=== PATIENT | male | born 1940 | race Caucasian/White ===

== ENCOUNTER 2019-01-31 07:50 | Observation (INO) ==
--- NOTE | 2019-01-31 07:45 | Anesthesia Evaluation PreOp ---
Date of Encounter: 01/31/19 Time of Encounter: 07:43 - Past History Planned Operation: RIGHT TKA Cardiac History: HTN, Hyperlipidemia Pulmonary History: COPD Other Medical History: Diabetes Type II, Other (OBESITY) Anesthesia History: No Prior Anesthetic Complications, Past Anesthesia Alcohol Use: none Drug use: none Medications and Allergies HYDROcodone/Acet 5/325 mg [[place] 5-325 mg] 1 tab PO Q6H PRN #15 tab 12/22/16 [Rx] cephALEXin [Keflex] 500 mg PO QID #28 capsule 12/22/16 [Rx] Docusate Sodium [Colace] 100 mg PO BID 5 Days #10 capsule 01/31/19 [Rx] OxyCODONE Immed Rel [Roxicodone 5 MG] 5 mg PO Q6HR PRN 5 Days #20 tablet 01/31/19 [Rx] Allergy/AdvReac Type Severity Reaction Status Date / Time No Known Allergies Allergy Verified 12/22/16 19:56 - Meds/Allergy Pre-op Review Medications Reviewed: Yes Allergies Reviewed: Yes Beta Blockers on Current Med List: No Anesthesia Results - Labs REVIEWED, WNL Anesthesia Exam REVIEWED Weight: 98 KG, BMI 32 NPO (# of Hours): 8 - HEENT Mallampati: IV Teeth: Missing - Cardiac Rhythm: Regular - Pulmonary Breath Sounds: bilateral Clear Anesthesia Assess/Plan ASA Score: 3 Anesthetic Plan: Regional Nerve Block, Spinal Monitoring Plan: Standard Monitors Recovery Plan: PACU
[~2019-01-31 07:50] MED LIST: *HR* HYDROmorphone (PF) 1 MG/ML SYRINGE IVP PRN; *HR* Labetalol 20 MG/4 ML SYRINGE IVP PRN; *HR* OxyCODONE Immed Rel 5 MG TABLET PO PRN; *HR* Promethazine 25 MG/ML VIAL IVP PRN; Acetaminophen IV 1,000 MG/100 ML INFUS..BTL IVPB ONE; Gabapentin 300 MG CAPSULE PO ONE; Ipratropium/Albuterol Neb 3 ML IH PRN; Ondansetron 4 MG/2 ML VIAL IVP ONE
[2019-01-31] MEDS ORDERED: traMADol 50 MG TABLET PO ONE (08:02)
--- NOTE | 2019-01-31 08:04 | Discharge Summary ---
<Tory Moore E - Last Filed: 01/31/19 08:22> Date of Encounter: 01/31/19 - Hospital Course Hospital course: Mr. Chan is a 78 year old male - Time Spent with Patient Total time spent providing and/or coordinating discharge services: - Discharge Medications Prescriptions: New Docusate Sodium [Colace] 100 mg PO BID 5 Days #10 capsule OxyCODONE Immed Rel [Roxicodone 5 MG] 5 mg PO Q6HR PRN 5 Days #20 tablet PRN Reason: Severe Pain Aspirin Enteric Coated [Aspirin EC] 325 mg PO BID 10 Days #20 tablet.dr Continued Aspirin 325 mg PO HS Simvastatin [Zocor] 20 mg PO HS Omeprazole [PriLOSEC] 20 mg PO MOWEFR Metformin HCl 1,000 mg PO BID Lisinopril [Zestril] 5 mg PO DAILY Citalopram Hydrobromide [Citalopram HBr] 40 mg PO DAILY Home Medications: Aspirin 325 mg PO HS 01/31/19 [History] Aspirin Enteric Coated [Aspirin EC] 325 mg PO BID 10 Days #20 tablet. 01/31/19 [Rx] Citalopram Hydrobromide [Citalopram HBr] 40 mg PO DAILY 01/31/19 [History] Docusate Sodium [Colace] 100 mg PO BID 5 Days #10 capsule 01/31/19 [Rx] Lisinopril [Zestril] 5 mg PO DAILY 01/31/19 [History] Metformin HCl 1,000 mg PO BID 01/31/19 [History] Omeprazole [PriLOSEC] 20 mg PO MOWEFR 01/31/19 [History] OxyCODONE Immed Rel [Roxicodone 5 MG] 5 mg PO Q6HR PRN 5 Days #20 tablet 01/31/19 [Rx] Simvastatin [Zocor] 20 mg PO HS 01/31/19 [History] Allergies/Adverse Reactions: Allergy/AdvReac Type Severity Reaction Status Date / Time No Known Allergies Allergy Verified 01/31/19 08:44 Primary care physician: Scott Saenz DO - Patient Status Disposition: Transfer Inpatient Rehab Fac Condition: Good - Discharge Instructions Follow Up With: Scott Saenz DO [Primary Care Provider] - <Tory Garcia - Last Filed: 02/03/19 15:08> Orders not resulted at time of discharge: Pending orders 01/31/19 11:19 Surgical Pathology [PTH] Routine Date of Encounter: 02/03/19 Time of Encounter: 15:04 - Discharge Diagnosis (1) Status post total right knee replacement Priority: Primary Status: Acute (2) Osteoarthritis of right knee Priority: Primary Status: Chronic Qualifiers: Osteoarthritis type: unspecified Qualified Code(s): M17.11 - Unilateral primary osteoarthritis, right knee (3) Diabetes mellitus Priority: Secondary Status: Chronic Qualifiers: Diabetes mellitus type: type 2 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 Chan is a 78 year old male status post right TKR 01/31/19 with medical history of DM, HTN, obesity. He participated in therapy and recommended for placement to rehab facility. He did have postoperative bleeding from the incision which resolved after addition of skin alexis. He otherwise had an uneventful hospital course. He is stable for discharge to [facility] and will follow up in [facility] office next week. - Time Spent with Patient Total time spent providing and/or coordinating discharge services: Date of admission: 01/31/19 Primary care physician: Scott Saenz DO Consults: 01/31/19 13:11 Consult to Nutrition [CONS] Routine Comment: Consulting Provider: NUTRITION Reason for Dietary Consult: Other Other:: Proper nutrition to facilitate wound healing Consult to Orthopedic Navigator [CONS] [CONS] Routine Consult to Physical Therapy [CONS] Routine Comment: Evaluate, develop and impliment POC Reason for Consult: post knee surgery Does patient have active BEDREST order?: No Is patient medically & hemodynamically stable?: Yes Consult to Taco Maker [CONS] Routine Reason for SW Consult: post op joint replacement RT Post Op Consult [CONS] Routine 01/31/19 13:23 Consult to Pastoral Services [CONS] Routine Comment: Discharging clinician: Kam Varner Anticipated date of discharge: 02/03/19 Labs on day of discharge: Short CBC 02/03/19 Range/Units 04:21 WBC 8.9 (4.3-11.1) K/mcL Hgb 11.3 L (12.9-16.9) g/dL Hct 34.7 L (37.5-50.1) % Plt Count 157 (140-400) K/mcL Neutrophils # 6.2 (1.6-8.9) K/mcL BMP 02/03/19 Range/Units 04:21 Sodium 138 (136-145) mEq/L Potassium 4.0 (3.5-5.1) mEq/L Chloride 100 (98-107) mEq/L Carbon Dioxide 29 (23-29) mEq/L BUN 12 (8-23) mg/dL Creatinine 0.68 L (0.70-1.30) mg/dL Glucose 150 H (70-105) mg/dL Calcium 8.6 (8.6-10.3) mg/dL - Impressions Knee X-Ray 01/31/19 01:00 IMPRESSION: Status post right knee arthroplasty. No acute postoperative complication. D/ / 01/31/2019 12:35:01 Raymond Brewer MD / [email or web address] Interpreting Provider: Raymond Brewer MD - Patient Status Functional capacity at discharge: uses cane/walker Overall status at discharge: patient is back to baseline - Diet and Activity Activity: ambulate only with your walker, as per physical therapy Diet: advance to your usual diet
[2019-01-31] MEDS ORDERED: *HR* FentaNYL (PF) 100 MCG/2 ML VIAL ONE (08:38)
[2019-01-31] MEDS ORDERED: *HR* Propofol 200 MG/20 ML VIAL IVP ONE ×2 (08:38→11:36)
[2019-01-31] MEDS ORDERED: *HR* Midazolam HCl 2 MG/2 ML VIAL ONE (08:38)
[2019-01-31] MEDS ORDERED: Ondansetron 4 MG/2 ML VIAL ONE (08:41)
[2019-01-31] MEDS ORDERED: Lidocaine -MPF 2% 2 ML VIAL ONE (08:41)
[2019-01-31] MEDS ORDERED: Tranexamic Acid 1,000 MG/10 ML VIAL ONE (08:41)
--- NOTE | 2019-01-31 09:02 | History & Physical Report ---
Date of Encounter: 01/31/19 Time of Encounter: 09:02 24 Hour HP Update - Instructions Instructions: If the History and Physical is less than 30 days old and was completed prior to A.M. admission and or procedure and has NOT been updated on calendar day of procedure please complete this update prior to performing procedure. - Update Patient reports changes in Medical Condition: No Changes in examination, assessment, or condition: No Changes in Medication: No Preop tests/diagnostics Reviewed: Yes Surgery Remains Indicated: Yes Consent for Planned Operative Procedure(s) Verified: Yes - Pre-Operative Checklist Preoperative Checklist Indicated: No Prophylactic Antibiotic Ordered: Yes Is VTE Prophylaxis Indicated?: Yes
[2019-01-31] MEDS ORDERED: Ethanol\\Acetic Acid\\Na Ace\\Ben 1,000 ML IRRIG.SOLN IR ONE (09:05)
[2019-01-31] MEDS ORDERED: Albuterol 2.5 MG/3 ML NEBULIZER IH ONE (09:10)
[2019-01-31] MEDS ORDERED: CeFAZolin Syr 2,000MG/20 ML 2,000 MG/20 ML SYRINGE IVPB ONE (09:10)
[2019-01-31] MEDS ORDERED: Ropivacaine/PF 0.5% 30 ML VIAL ONE (09:11)
[2019-01-31] MEDS ORDERED: Albuterol 2.5 MG/3 ML NEBULIZER ONE (09:24)
[2019-01-31] MEDS: Ringers Solution, Lactated 1,000 ML IVC SCH ×2 (09:28→11:00)
[2019-01-31] MEDS ORDERED: *HR* PHENYLEPHRINE 1,000 MCG/10 ML SYRINGE IVP ONE ×2 (10:34→11:29)
--- NOTE | 2019-01-31 10:41 | Anesthesia Procedures ---
Date of Encounter: 01/31/19 Time of Encounter: 09:55 Procedures: Anesthesia - Epidural/Spinal Patient ID/Chart reviewed: Yes Patient examined: Yes Supplemental Oxygen Rate (L/min): 2 Sedation: Versed (mg): 1 Sedation: Fentanyl (mcg): 50 Site Prep: Aseptic Technique, Povidone-Iodine 1% Patient position: upright Local Anesthetic: Lidocaine 1% (3ml skin local) Interspace Used: L4-L5 Loss of Resistance (MICHAELA): Yes Blood: No CSF: Yes Paresthesia: No Spinal Needle Gauge: 25 Spinal Dose: 2.8ml of 0.5% Bupivacaine Procedure: SAB performed with patient in sitting position after sterile aseptic betadine prep. LIdocaine 1% skin local(3ml), 25 guage Sprotte needle inserted first attempt via L4-L5 interspace with no blood or parasthesia encounted. Clear CSF X4 quads Given 2.8ml of 0.5% Bupivacaine and assisted supine Tolerated Block well without difficulty. Vitals + FHT's: Vital Signs/O2 Sat/Glucose, Most Recent Temp Pulse Resp BP Pulse Ox 98.4 F 62 18 126/73 97 01/31/19 08:52 01/31/19 10:11 01/31/19 08:52 01/31/19 10:11 01/31/19 10:11 Blood Glucose* 127 - Nerve Block Procedure Date: 01/31/19 Time: 10:07 Allergies/Adv Reactions: Allergies Allergy/AdvReac Type Severity Reaction Status Date / Time No Known Allergies Allergy Verified 01/31/19 08:44 Pre-op Diagnosis: Right Knee Arthritis Surgical Procedure: Robotic Right TKA Checklist: Correct Patient Identifier, Correct procedure, History checked Correct side: Right Blood Thinner: No Monitor Applied: EKG, BP, Pulse Oximetry Supplemental Oxygen via Nasal Cannula (L/min): 2 Sedation: Versed (mg): 1 (Given before SAB) Sedation: Fentanyl (mcg): 50 (Given before SAB) Indication: Post Op Analgesia Pre-op Neuro Deficits: No Block Type: Other (Adductor Canal Block) Sterile Technique: Yes Ultrasound used: Yes Anatomy identified: Yes Visual spread of Local: Yes Neuro Stimulation: No Blood on Needle Aspiration: No Smooth Injection of Local: Yes Pain with Injection of Local: No Prep: Chlorhexadine Needle: 21 x 100 mm Stimuplex Local: Ropivacaine (0.5% Ropivacaine with 8mg Decadron (20ml)) Volume (cc): 20ml Number of Attempts: 1 Complications: None/effective block Vitals: Vital Signs/O2 Sat/Glucose, Most Recent Temp Pulse Resp BP Pulse Ox 98.4 F 62 18 126/73 97 01/31/19 08:52 01/31/19 10:11 01/31/19 08:52 01/31/19 10:11 01/31/19 10:11 Blood Glucose* 127
[2019-01-31] MEDS ORDERED: Propofol 500 MG/50 ML INFUS..BTL ONE (10:56)
--- NOTE | 2019-01-31 11:17 | Orthopedic Operative Note ---
Date of procedure: 01/31/19 Pre-op diagnosis: Right knee arthritis Post-op diagnosis: same Procedure: Procedure: Right robotic-assisted Total knee replacement Estimated blood loss: 200 cc Hardware: Metal and polyethylene replacement. [place] Femur: 5 Tibia:5 TS insert: 9 Patella: 39 Exam Under anesthesia: 18 degree flexion contracture 11 degree varus as calculated by the robot full flexion and no instability Procedural Notes: Grade 4 arthritic changes patellofemoral joint medial compartment Operative procedure: The patient was brought to the operating room and placed on the operating room table. After general anesthesia was administered the operative knee was examined. Findings were noted in the exam under anesthesia. The operative extremity was prepped and draped in sterile surgical fashion. The patient received IV antibiotics prior to skin incision. A standard midline incision was made centered over the patella. The incision was made through the skin and subcutaneous tissue. A medial parapatellar tendon approach was performed. Care was taken to preserve tissue along the medial aspect of the patella. And to protect the patella tendon. The deep MCL was released off the medial tibia. The infra patella fat pad was excised. The patella was everted and cut was made at the level of the insertion of the quadriceps and patella tendon. The patella was sized the guide was seated and the lug holes are drilled. Knee was brought into flexion. Patient noted to have grade 4 arthritic changes patellofemoral joint medial compartment. Steinmann pins were placed in the tibia and the femur for the tibial and femoral arrays respectively. Checkpoints were also placed in the tibia and the femur for calculation purposes. The knee including the femur and the tibial registered. Osteophytes, ACL and PCL were excised at this point. Extension and flexion were assessed with a valgus stress components were adjusted on the computer to balance the knee. Femoral cuts were made first with robotic assistance, these included the anterior cut posterior cuts chamfer cuts. Tibial cut was then performed with robotic assistance as well. Bone fragments were removed, as well as the medial and lateral meniscus. The size 5 femoral guide was seated box cut was made lug holes are drilled. The size 5 tibial tray was seated and prepared with the fin cutter. Trial reduction with the 9 TS Nayely revealed extension of 0 degree and 7 degree varus full flexion. No varus valgus instability. Trial reduction revealed excellent patella tracking. All trial components were removed all bony surfaces were irrigated. The Tibia was seated followed by the femur, The selected Nayely size was seated and secured patella. Patient had similar findings for motion and stability. The knee was closed by the PA. The knee was then irrigated out with 2 L of pulse irrigation. The extensor mechanism was closed with #2 FiberWire suture and #2 PDS suture. The subcutaneous tissue was then irrigated and closed deep with #1 PDS suture superficially with 0 PDS suture and skin was closed with zip tie The patient was then placed in a sterile dressing and a postoperative brace extubated and transferred to recovery room in stable condition. Anesthesia: spinal Surgeon: Kam Varner Was there an housing assistant present: No Estimated blood loss (cc): 200 Condition: stable Disposition: PACU
[2019-01-31] MEDS ORDERED: Ropivacaine/PF 0.5% 24.62 ML, EPINEPHrine 0.25 MG, Ketorolac 15 MG, Water for inj. (ste... IR ONE (11:20)
--- NOTE | 2019-01-31 11:36 | Physician Discharge Referral ---
Home Health/Hosp Referral Info Transfer to: Home Health Attending Provider: Dr. Varner - Diagnosis (1) Status post total right knee replacement Priority: Primary Status: Acute (2) Osteoarthritis of right knee Priority: Primary Status: Chronic (3) Diabetes mellitus Priority: Secondary Status: Chronic (4) Obesity (BMI 30.0-34.9) Priority: Secondary Status: Chronic (5) HTN (hypertension) Priority: Secondary Status: Chronic - Respiratory Orders None Smoking Cessation: Smoking cessation has been advised. For more information, call the [place] Tobacco Quit Line at 2-391-EBGB-NOW. - Diet/Nutrition Diet/Nutrition Orders: Regular - Activity Activity Orders: Ambulate, Chair, Walker - Services Needed Following services are medically necessary services: Nursing, Home Health Aide, Physical Therapy, Occupational Therapy Home Care Orders: Opsite dressing, leave intact until first post-operative visit. If dressing becomes >50% saturated, contact office, remove dressing and place appropriate dressing in its place. Do not allow for dressing to get wet. Zipline/[place] in place, plan to remove at post-operative day #14-16. Total Joint Precautions x 6 weeks Apply cold therapy wrap 3-6x/day for 20 minutes at a time. Encourage ambulation throughout the day Use Incentive spirometer 10x/hour. Elevate affected extremity above heart as tolerated. Brace: Wear knee immobilizer at night x 2 weeks. - Transfer Medications Prescriptions: Aspirin Enteric Coated [Aspirin EC] 325 mg PO BID 10 Days #20 tablet. Docusate Sodium [Colace] 100 mg PO BID 5 Days #10 capsule OxyCODONE Immed Rel [Roxicodone 5 MG] 5 mg PO Q6HR PRN 5 Days #20 tablet PRN Reason: Severe Pain Home Medications: Aspirin 325 mg PO HS 01/31/19 [History] Aspirin Enteric Coated [Aspirin EC] 325 mg PO BID 10 Days #20 tablet. 01/31/19 [Rx] Citalopram Hydrobromide [Citalopram HBr] 40 mg PO DAILY 01/31/19 [History] Docusate Sodium [Colace] 100 mg PO BID 5 Days #10 capsule 01/31/19 [Rx] Lisinopril [Zestril] 5 mg PO DAILY 01/31/19 [History] Metformin HCl 1,000 mg PO BID 01/31/19 [History] Omeprazole [PriLOSEC] 20 mg PO MOWEFR 01/31/19 [History] OxyCODONE Immed Rel [Roxicodone 5 MG] 5 mg PO Q6HR PRN 5 Days #20 tablet 01/31/19 [Rx] Simvastatin [Zocor] 20 mg PO HS 01/31/19 [History] Allergies/Adverse Reactions: Allergy/AdvReac Type Severity Reaction Status Date / Time No Known Allergies Allergy Verified 01/31/19 08:44 Certification: Further, I certify that my clinical findings support that this patient is homebound (i.e. absences from home require considerable and taxing effort and are for medical reasons or holiness services or infrequently or short duration when for other reasons) because: Homebound Reason: Post-surgery restriction and or conditions limit ability to leave home Attestation: My signature below is to certify that this patient is under my care and that I, or nurse practitioner, or a physician grants and contracts assistant working with me, has a [id number] encounter with this patient.
[2019-01-31 12:41] LABS: Hematocrit 39.2 % (37.5-50.1); Hemoglobin 12.7 g/dL (12.9-16.9)
[2019-01-31] MEDS ORDERED: *HR* Dextrose 50 % in Water (Syg) 50 ML SYRINGE IVP PRN (13:11)
[2019-01-31] MEDS ORDERED: MOM Conc 10 ML UD.LIQ PO PRN (13:11)
[2019-01-31] MEDS ORDERED: D5% in Water 1,000 ML IVC PRN (13:11)
[2019-01-31] MEDS ORDERED: Sennosides 8.6 MG TABLET PO PRN (13:11)
[2019-01-31] MEDS ORDERED: Ringers Solution, Lactated 1,000 ML IVC SCH (13:11)
[2019-01-31] MEDS ORDERED: Ondansetron 4 MG/2 ML VIAL IVP PRN (13:11)
[2019-01-31] MEDS ORDERED: Temazepam 15 MG CAPSULE PO PRN (13:11)
[2019-01-31] MEDS ORDERED: Dextrose Gel 15 GM/37.5 ML TUBE PO PRN ×2 (13:11)
[2019-01-31] MEDS ORDERED: Naloxone 0.4 MG/ML INJ IVP PRN (13:11)
[2019-01-31] MEDS ORDERED: *HR* Promethazine 25 MG/ML VIAL IVP PRN (13:11)
[2019-01-31] MEDS ORDERED: traMADol 50 MG TABLET PO PRN (13:11)
--- NOTE | 2019-01-31 13:19 | Anesthesia Evaluation Post Op ---
Date of Encounter: 01/31/19 Time of Encounter: 12:48 - Discharge PostOp Status: Transfer Patient to floor (Patient's vital signs have been reviewed. Patient is stable postoperatively and has adequately recovered from anesthesia. Patient is determined to have stable airway patency and respiratory function including respiratory rate and oxygen saturation. Patient has a stable heart rate, blood pressure and adequate hydration. Patients mental status is acceptable. Patients temperature is appropriate. Pain and nausea are adequately controlled)
[2019-01-31] MEDS: Insulin LISPRO 300 UNITS/3 ML VIAL SQ SCH ×3 (14:46→20:35)
[2019-01-31] MEDS: Multivit/Ca/Min/Fe/FA 1 TAB TABLET PO SCH (14:56)
[2019-01-31] MEDS: *HR* Metformin 500 MG TABLET PO SCH (16:03)
[2019-01-31] MEDS: Ascorbic Acid 500 MG TABLET PO SCH (16:04)
[2019-01-31] MEDS: Aspirin 325 MG TABLET PO SCH (20:46)
[2019-02-01] MEDS: *HR* Enoxaparin 30 MG/0.3 ML SYRINGE SQ SCH (06:33)
--- NOTE | 2019-02-01 06:37 | Orthopedics Progress Note ---
Date of Encounter: 02/01/19 Time of Encounter: 06:36 Subjective Interval history: Patient was seen this morning doing well without complaints. Afebrile vital signs stable. Operative extremity: Neurovascularly intact Bloody drainage on dressing Calves nontender Assessment and plan: Continue with postoperative care We will evaluate for possible staple later. Objective Vital signs: Vital Signs Temp Pulse Resp BP Pulse Ox 02/01/19 04:20 97.6 F 51 16 128/77 96 02/01/19 00:12 98 F 55 16 126/70 94 01/31/19 19:21 97.9 F 66 18 112/61 96 01/31/19 15:55 97.8 F 64 17 119/59 95 01/31/19 12:47 97.4 F L 56 17 111/66 97 01/31/19 12:44 97.9 F 53 16 107/69 94 01/31/19 12:34 97.4 F L 53 16 119/61 97 01/31/19 12:24 56 16 109/66 96 01/31/19 12:14 55 16 103/60 98 01/31/19 12:04 98 F 56 16 101/65 98 01/31/19 10:11 62 126/73 97 01/31/19 10:05 61 121/78 98 01/31/19 09:52 59 132/98 96 01/31/19 08:52 98.4 F 58 18 126/76 97 Intake and Output 01/31/19 01/31/19 02/01/19 15:59 23:59 07:59 Intake Total 1200 / 1500 300 / 1500 150 / 150 Output Total 200 / 200 Balance 1000 / 1300 300 / 1300 150 / 150 Intake: IV Fluids 1000 / 1100 100 / 1100 100 / 100 Lactated Ringers 1,000 ML @ 25 1000 / 1000 mls/hr IVC .Q24H [facility]AO Rx#: [id number] Ancef 2,000 MG In 0.9 % Sodium 100 / 100 100 / 100 Chloride 100 ML @ 200 mls/hr IVPB Q8HR THAO Rx#:[id number] Oral 200 / 400 200 / 400 50 / 50 Output: Estimated Blood Loss 200 / 200 Other: # Voids 1 1 Weight 98.43 kg 98.8 kg Blood Glucose* 126 192 Patient Weight 02/01/19 23:59 Weight 98.8 kg - Labs CBC & BMP: 01/31/19 12:25 Labs: Abnormal lab results Hgb 12.7 g/dL (12.9-16.9) L 01/31/19 12:25 POC Glucose 192 mg/dL (70-99) H 01/31/19 19:45 - VTE Documentation of Mechanical Device: Venous foot pump, device Consult Discharge Plan - Plan Referrals: Scott Saenz DO [Primary Care Provider] - Prescriptions: Aspirin Enteric Coated [Aspirin EC] 325 mg PO BID 10 Days #20 tablet. Docusate Sodium [Colace] 100 mg PO BID 5 Days #10 capsule OxyCODONE Immed Rel [Roxicodone 5 MG] 5 mg PO Q6HR PRN 5 Days #20 tablet PRN Reason: Severe Pain
[2019-02-01 07:03] LABS: Basophils % 0.2 %; Eosinophils % 0.2 %; Hematocrit 36.9 % (37.5-50.1); Hemoglobin 12.1 g/dL (12.9-16.9); Immature Granulocytes % 0.6 % (0-4); Lymphocytes # 1.3 K/mcL (0.6-4.6); Mean Corpuscular HGB Conc 32.8 g/dL (31.6-35.5); Mean Corpuscular Hemoglobin 30.9 pg (28.0-33.3); Mean Corpuscular Volume 94.1 fL (83.0-100.0); Monocytes # 1.1 K/mcL (0.0-1.3); Monocytes % 9.7 %; Neutrophils # 9.2 K/mcL (1.6-8.9); Platelet Count 187 K/mcL (140-400); Red Blood Count 3.92 M/mcL (4.19-5.50); Red Cell Distribution Width 14.3 % (11.5-14.5); Segmented Neutrophils % 78.3 %; White Blood Count 11.7 K/mcL (4.3-11.1)
[2019-02-01 07:21] LABS: BUN/Creatinine Ratio 23 (6-26); Blood Urea Nitrogen 19 mg/dL (8-23); Calcium 8.8 mg/dL (8.6-10.3); Carbon Dioxide 24 mEq/L (23-29); Chloride 102 mEq/L (98-107); Glucose 132 mg/dL (70-105); Osmolality,Calculated 288 (280-300); Potassium 4.5 mEq/L (3.5-5.1); Sodium 137 mEq/L (136-145); eGFR For African Americans > 60 (> 60); eGFR For Non-African Americans > 60 (> 60)
[2019-02-01] MEDS: Insulin LISPRO 300 UNITS/3 ML VIAL SQ SCH ×4 (07:34→21:22)
[2019-02-01] MEDS: Multivit/Ca/Min/Fe/FA 1 TAB TABLET PO SCH (07:44)
[2019-02-01] MEDS: *HR* Metformin 500 MG TABLET PO SCH ×2 (07:45→17:59)
[2019-02-01] MEDS: Ascorbic Acid 500 MG TABLET PO SCH ×2 (07:45→17:59)
[2019-02-01] MEDS: *HR* OxyCODONE Immed Rel 5 MG TABLET PO PRN (14:52)
--- NOTE | 2019-02-01 16:08 | Event Note ---
Date of Encounter: 02/01/19 Time of Encounter: 12:00 PCR - POD#1 s/p right TKR 01/31 Patient seen at bedside, without complaints other than feeling more tired after AM therapy session. A&O x 3 Afebrile, vital signs stable. Dressings on exam were completely dry but patient states nurse just changed dressings 10 min prior to exam. He did have saturated dressings overnight and did require addition of more skin alexis earlier this morning by Luis Alberto Moore PA-C. Will add pressure dressing and see if there is any change in bleeding after PM therapy session. Will consider knee immobilizer if bleeding continues. Labs reviewed. H/H - 12.1/36.9 stable, asymptomatic Pain control: adequate Participating in PT. All questions and concerns addressed. Educated on use of incentive spirometer. Encouraged ambulation and proper hydration. Patient educated on post-operative restrictions and post-operative care. Assessment and plan: Continue with postoperative care Discharge plan: Home with home health, discharge possibly today but will see how he feels and how bleeding changes after PM therapy session.
[2019-02-01] MEDS: Aspirin 325 MG TABLET PO SCH (21:18)
[2019-02-02] MEDS: *HR* OxyCODONE Immed Rel 5 MG TABLET PO PRN (00:22)
[2019-02-02 04:19] LABS: Basophils % 0.2 %; Eosinophils # 0.1 K/mcL (0.0-0.6); Eosinophils % 1.5 %; Hematocrit 34.3 % (37.5-50.1); Hemoglobin 11.1 g/dL (12.9-16.9); Immature Granulocytes % 0.2 % (0-4); Lymphocytes % 22.8 %; Mean Corpuscular HGB Conc 32.4 g/dL (31.6-35.5); Mean Corpuscular Hemoglobin 29.9 pg (28.0-33.3); Mean Corpuscular Volume 92.5 fL (83.0-100.0); Mean Platelet Volume 9.8 fL (9.4-12.4); Monocytes # 1.1 K/mcL (0.0-1.3); Monocytes % 11.8 %; Neutrophils # 5.7 K/mcL (1.6-8.9); Platelet Count 151 K/mcL (140-400); Red Blood Count 3.71 M/mcL (4.19-5.50); Red Cell Distribution Width 14.1 % (11.5-14.5); Segmented Neutrophils % 63.5 %; White Blood Count 8.9 K/mcL (4.3-11.1)
[2019-02-02 04:36] LABS: BUN/Creatinine Ratio 22 (6-26); Blood Urea Nitrogen 15 mg/dL (8-23); Calcium 8.3 mg/dL (8.6-10.3); Carbon Dioxide 27 mEq/L (23-29); Chloride 101 mEq/L (98-107); Glucose 134 mg/dL (70-105); Osmolality,Calculated 281 (280-300); Potassium 4.2 mEq/L (3.5-5.1); Sodium 134 mEq/L (136-145); eGFR For African Americans > 60 (> 60); eGFR For Non-African Americans > 60 (> 60)
[2019-02-02] MEDS: Multivit/Ca/Min/Fe/FA 1 TAB TABLET PO SCH (08:29)
[2019-02-02] MEDS: *HR* Metformin 500 MG TABLET PO SCH ×2 (08:29→16:21)
[2019-02-02] MEDS: Ascorbic Acid 500 MG TABLET PO SCH ×2 (08:30→16:21)
[2019-02-02] MEDS: Insulin LISPRO 300 UNITS/3 ML VIAL SQ SCH ×4 (08:31→19:50)
--- NOTE | 2019-02-02 08:41 | Orthopedics Progress Note ---
Date of Encounter: 02/02/19 Time of Encounter: 08:40 Subjective Interval history: Patient was seen this morning doing well without complaints. Some confusion overnight Afebrile vital signs stable. Operative extremity: Neurovascularly intact Dressing clean dry and intact Calves nontender Assessment and plan: Continue with postoperative care Awaiting placement Objective Vital signs: Vital Signs Temp Pulse Resp BP Pulse Ox 02/02/19 06:32 98.3 F 58 16 141/71 97 02/02/19 04:52 98.0 F 53 17 149/74 96 02/02/19 00:20 145/76 02/01/19 23:23 98.4 F 58 16 154/78 95 02/01/19 18:37 98.3 F 54 16 134/72 95 02/01/19 15:55 98.2 F 64 16 128/72 96 02/01/19 12:16 98.0 F 60 16 120/72 96 Intake and Output 02/01/19 02/02/19 02/02/19 23:59 07:59 15:59 Intake Total 240 / 870 Output Total 100 / 250 150 / 250 Balance 240 / 870 -100 / -250 -150 / -250 Intake: Oral 240 / 770 Output: Urine 100 / 250 150 / 250 Other: Meal Dinner Percent of Meal Consumed 90% # Voids 1 1 Weight 99.1 kg Blood Glucose* 201 147 Patient Weight 02/02/19 23:59 Weight 99.1 kg - Labs CBC & BMP: 02/02/19 03:57 02/02/19 03:57 Labs: Abnormal lab results WBC 11.7 K/mcL (4.3-11.1) H 02/01/19 06:44 RBC 3.71 M/mcL (4.19-5.50) L 02/02/19 03:57 Hgb 11.1 g/dL (12.9-16.9) L 02/02/19 03:57 Hct 34.3 % (37.5-50.1) L 02/02/19 03:57 Neutrophils # 9.2 K/mcL (1.6-8.9) H 02/01/19 06:44 Sodium 134 mEq/L (136-145) L 02/02/19 03:57 Creatinine 0.68 mg/dL (0.70-1.30) L 02/02/19 03:57 Glucose 134 mg/dL (70-105) H 02/02/19 03:57 POC Glucose 147 mg/dL (70-99) H 02/02/19 07:31 Calcium 8.3 mg/dL (8.6-10.3) L 02/02/19 03:57 - VTE Documentation of Mechanical Device: Venous foot pump, device Consult Discharge Plan - Plan Referrals: Scott Saenz DO [Primary Care Provider] - Prescriptions: Aspirin Enteric Coated [Aspirin EC] 325 mg PO BID 10 Days #20 tablet. Docusate Sodium [Colace] 100 mg PO BID 5 Days #10 capsule OxyCODONE Immed Rel [Roxicodone 5 MG] 5 mg PO Q6HR PRN 5 Days #20 tablet PRN Reason: Severe Pain
--- NOTE | 2019-02-02 11:37 | Physician Discharge Referral ---
ExtendedCare Referral Info Transfer To: [facility] Provider in Charge: Dr. Varner - Diagnosis (1) Status post total right knee replacement Priority: Primary Status: Acute (2) Osteoarthritis of right knee Priority: Primary Status: Chronic (3) Diabetes mellitus Priority: Secondary Status: Chronic (4) Obesity (BMI 30.0-34.9) Priority: Secondary Status: Chronic (5) HTN (hypertension) Priority: Secondary Status: Chronic Expected Duration of Placement: <30 days Prognosis: Good Aware of Diagnosis: Patient Aware of Prognosis: Patient - Transfer Medications Home Medications: Aspirin 325 mg PO HS 01/31/19 [History] Aspirin Enteric Coated [Aspirin EC] 325 mg PO BID 10 Days #20 tablet. 01/31/19 [Rx] Citalopram Hydrobromide [Citalopram HBr] 40 mg PO DAILY 01/31/19 [History] Docusate Sodium [Colace] 100 mg PO BID 5 Days #10 capsule 01/31/19 [Rx] Lisinopril [Zestril] 5 mg PO DAILY 01/31/19 [History] Metformin HCl 1,000 mg PO BID 01/31/19 [History] Omeprazole [PriLOSEC] 20 mg PO MOWEFR 01/31/19 [History] OxyCODONE Immed Rel [Roxicodone 5 MG] 5 mg PO Q6HR PRN 5 Days #20 tablet 01/31/19 [Rx] Simvastatin [Zocor] 20 mg PO HS 01/31/19 [History] Allergies/Adverse Reactions: Allergy/AdvReac Type Severity Reaction Status Date / Time No Known Allergies Allergy Verified 01/31/19 08:44 - Respiratory Orders None Smoking Cessation: Smoking cessation has been advised. For more information, call the [place] Tobacco Quit Line at 7-643-VNXP-NOW. - Ancillary Orders May use pressure relief devices daily prn, May go on ROBERT w/family/respon republican w/meds at nurse discretion PRN, May consult with Dentist, Therapeutic Assistant, Telephone Plant Power Operator PRN - Advance Directives Code Status: Full Code - Mobility Orders Chair, Ambulate - Rehabiliation Orders Rehab Potential: Good Rehab Orders: ROM Exercises, Evaluation for Physical Therapy, Evaluation for Occupational Therapy Other: Opsite dressing, leave intact until first post-operative visit. If dressing becomes >50% saturated, contact office, remove dressing and place appropriate dressing in its place. Do not allow for dressing to get wet. Zipline/Lambert in place, plan to remove at post-operative day #14-16. Total Joint Precautions x 6 weeks Apply cold therapy wrap 3-6x/day for 20 minutes at a time. Encourage ambulation throughout the day Use Incentive spirometer 10x/hour. Elevate affected extremity above heart as tolerated. Brace: Wear knee immobilizer at night x 2 weeks. - Treatments Skin tear care topically daily PRN per policy - Diet Orders Regular CERTIFICATION: I certify that the transfer of the above named patient to an Extended Care Facility is necessary for the continuing treatment of the diagnosis listed. The above information is true and accurate reflection of patient's current condition. Confidential - Redisclosure prohibited without a patient's written consent.
[2019-02-02] MEDS: HYDROcodone BIT/Homatropine 5 MG TABLET PO PRN (12:33)
--- NOTE | 2019-02-02 12:33 | Event Note ---
Date of Encounter: 02/02/19 Time of Encounter: 12:00 PCR - POD#2 s/p right TKR 01/31 Patient seen at bedside, without complaints. A&O x 3 Per nurse there was some noted confusion overnight. unsure if related to him being hard of hearing vs related to taking pain medications but he did answer all questions appropriately for me on exam today. Afebrile, vital signs stable. Dressings had very minimal drainage midline. Will continue to monitor but ok to progress motion as tolerated. (skin alexis were added 02/01) No calf tenderness to palpation, good dorsiflexion of foot, sensation intact distally. Labs reviewed. H/H - 11.1/34.3 stable, asymptomatic Pain control: adequate currently Participating in PT but did not do as well today as he did yesterday and recommendation changed to ECF for rehab. All questions and concerns addressed. Educated on use of incentive spirometer. Encouraged ambulation and proper hydration. Patient educated on post-operative restrictions and post-operative care. Assessment and plan: Continue with postoperative care Discharge plan: ECF, pending auth
[2019-02-02] MEDS ORDERED: tiZANidine 4 MG TABLET PO PRN (18:37)
[2019-02-02] MEDS: Aspirin 325 MG TABLET PO SCH (19:56)
[2019-02-03] MEDS: HYDROcodone BIT/Homatropine 5 MG TABLET PO PRN ×2 (00:35→14:43)
[2019-02-03 04:54] LABS: Basophils % 0.3 %; Eosinophils # 0.1 K/mcL (0.0-0.6); Eosinophils % 0.7 %; Hematocrit 34.7 % (37.5-50.1); Hemoglobin 11.3 g/dL (12.9-16.9); Immature Granulocytes % 0.3 % (0-4); Lymphocytes # 1.7 K/mcL (0.6-4.6); Lymphocytes % 18.8 %; Mean Corpuscular HGB Conc 32.6 g/dL (31.6-35.5); Mean Corpuscular Hemoglobin 30.3 pg (28.0-33.3); Mean Platelet Volume 10.2 fL (9.4-12.4); Monocytes # 0.9 K/mcL (0.0-1.3); Monocytes % 10.2 %; Neutrophils # 6.2 K/mcL (1.6-8.9); Platelet Count 157 K/mcL (140-400); Red Blood Count 3.73 M/mcL (4.19-5.50); Red Cell Distribution Width 14.1 % (11.5-14.5); Segmented Neutrophils % 69.7 %; White Blood Count 8.9 K/mcL (4.3-11.1)
[2019-02-03 05:08] LABS: BUN/Creatinine Ratio 18 (6-26); Blood Urea Nitrogen 12 mg/dL (8-23); Calcium 8.6 mg/dL (8.6-10.3); Carbon Dioxide 29 mEq/L (23-29); Chloride 100 mEq/L (98-107); Glucose 150 mg/dL (70-105); Osmolality,Calculated 289 (280-300); Sodium 138 mEq/L (136-145); eGFR For African Americans > 60 (> 60); eGFR For Non-African Americans > 60 (> 60)
[2019-02-03] MEDS: *HR* Enoxaparin 30 MG/0.3 ML SYRINGE SQ SCH ×2 (06:23→17:09)
[2019-02-03] MEDS: Ascorbic Acid 500 MG TABLET PO SCH ×2 (07:56→17:08)
[2019-02-03] MEDS: Multivit/Ca/Min/Fe/FA 1 TAB TABLET PO SCH (07:56)
[2019-02-03] MEDS: *HR* Metformin 500 MG TABLET PO SCH ×2 (07:56→17:08)
[2019-02-03] MEDS: Insulin LISPRO 300 UNITS/3 ML VIAL SQ SCH ×3 (07:58→17:09)
--- NOTE | 2019-02-03 08:10 | Orthopedics Progress Note ---
Date of Encounter: 02/03/19 Time of Encounter: 08:10 Subjective Interval history: Patient was seen this morning doing well without complaints. Afebrile vital signs stable. Operative extremity: Neurovascularly intact Dressing clean dry and intact Calves nontender Assessment and plan: Continue with postoperative care Awaiting placement Objective Vital signs: Vital Signs Temp Pulse Resp BP Pulse Ox 02/03/19 06:50 98.2 F 59 14 147/80 95 02/02/19 23:09 98.9 F 60 17 131/61 95 02/02/19 20:00 96 02/02/19 19:17 99.3 F 78 16 145/63 96 02/02/19 15:12 98.5 F 70 20 117/75 96 02/02/19 10:58 99.1 F 61 18 130/63 95 Intake and Output 02/02/19 02/03/19 02/03/19 23:59 07:59 15:59 Intake Total 250 / 470 Output Total 450 / 1000 600 / 600 Balance -200 / -530 -600 / -600 Intake: Oral 250 / 470 Output: Urine 450 / 1000 600 / 600 Other: Percent of Meal Consumed 50% Stool Size Small Stool Consistency soft formed Stool Color Brown # Bowel Movements 1 Weight 99 kg Blood Glucose* 128 148 Patient Weight 02/03/19 23:59 Weight 99 kg - Labs CBC & BMP: 02/03/19 04:21 02/03/19 04:21 Labs: Abnormal lab results WBC 11.7 K/mcL (4.3-11.1) H 02/01/19 06:44 RBC 3.73 M/mcL (4.19-5.50) L 02/03/19 04:21 Hgb 11.3 g/dL (12.9-16.9) L 02/03/19 04:21 Hct 34.7 % (37.5-50.1) L 02/03/19 04:21 Neutrophils # 9.2 K/mcL (1.6-8.9) H 02/01/19 06:44 Sodium 134 mEq/L (136-145) L 02/02/19 03:57 Creatinine 0.68 mg/dL (0.70-1.30) L 02/03/19 04:21 Glucose 150 mg/dL (70-105) H 02/03/19 04:21 POC Glucose 128 mg/dL (70-99) H 02/02/19 19:27 Calcium 8.3 mg/dL (8.6-10.3) L 02/02/19 03:57 - VTE Documentation of Mechanical Device: Venous foot pump, device Consult Discharge Plan - Plan Referrals: Scott Saenz DO [Primary Care Provider] -
--- NOTE | 2019-02-03 10:39 | Event Note ---
Date of Encounter: 02/03/19 Time of Encounter: 10:20 PCR - POD#3 s/p right TKR 01/31 Patient seen at bedside, without complaints. A&O x 3 Afebrile, vital signs stable. No new bleeding from incision overnight. (skin alexis were added 02/01) No calf tenderness to palpation, good dorsiflexion of foot, sensation intact distally. Labs reviewed. H/H - 11.3/34.7 stable, asymptomatic Pain control: adequate currently Participating in PT. All questions and concerns addressed. Educated on use of incentive spirometer. Encouraged ambulation and proper hydration. Patient educated on post-operative restrictions and post-operative care. Assessment and plan: Continue with postoperative care Discharge plan: ECF, pending auth
[2019-02-03] MEDS: *HR* OxyCODONE Immed Rel 5 MG TABLET PO PRN (10:51)
[2019-02-03 19:02] VITALS: BP 131/82
== END 2019-02-03 19:04 ==
LOC: 3NENU 07:50 → SAMDAY 07:50 → 3NENU 12:39
PROVIDERS: ADMIT Orthopaedic Surgery; ATTEND Orthopaedic Surgery